=== PATIENT | male | born 1960 | race Caucasian/White ===

== ENCOUNTER 2016-08-24 09:00 | Observation (INO) | payer BC ==
[~2016-08-24] VITALS: Ht 182.9 cm; Wt 126.7 kg
--- NOTE | ~2016-08-24 | OR ---
PATIENT'S NAME: MIR LOPEZ [facility] AGE: 55 Y [address] ROOM: [address] [address] LOCATION: [facility] ADMIT DATE: 08/26/2016 OR/Procedure Report DISCHARGE DATE: FAMILY PHYSICIAN: DOMITILA VAZQUEZ MD ATTENDING PHYSICIAN: Lulu Silva SURGEON: Lulu Silva MD POLICY SERVICES REPRESENTATIVE: Jeffrey Cummings CST. DATE OF PROCEDURE: 08/26/2016 PREOPERATIVE DIAGNOSIS: Low back pain with radiation. POSTOPERATIVE DIAGNOSIS: Low back pain with radiation. PROCEDURE PERFORMED: 1. Bilateral hemilaminotomy, medial facetectomy, and foraminotomy at L4-5. 2. Left L4-5 microdiskectomy. ANESTHESIA: General. ANESTHESIA PROVIDER: Mir Rosas CRNA HISTORY: The patient is a 55-year-old male, who presented with back pain going down the backs of the legs especially on the left leg. The patient's history is significant for previous spinal fusion at L5-S1 level. 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 Epidural steroid injections were tried without lasting benefit. Surgery was therefore recommended. The procedure, benefits, and risks were discussed with the patient and with his consent, he was brought to the operating room for surgery. PROCEDURE IN DETAIL: The patient was placed in a supine position. Anesthesia was induced and he was intubated. He was then rolled to a prone position on a Noel table taking care to protect all pressure points. The incision line was marked out in the midline of his lower back corresponding to the incision used for his previous surgery. The whole area was prepped and draped in a sterile fashion. Local anesthesia was infiltrated. The #10 blade was used to open the incision and to deepen it to the fascial layer. There was scar tissue from the previous surgery. Working very carefully, the tip of the L4 spinous process was identified. The paraspinous muscles were then dissected off the spinous process and laminae of L4. The L3 lamina was also seen. Intraoperative x-ray was obtained to verify our level. Microscope was brought in at this point, and under microscopic vision bilateral hemilaminotomy was carried out of the L4 level. The hemilaminotomy PATIENT'S NAME: MIR LOPEZ [facility] AGE: 55 Y [address] ROOM: [id number] [place], [place] [id number] LOCATION: [facility] ADMIT DATE: 08/26/2016 OR/Procedure Report DISCHARGE DATE: FAMILY PHYSICIAN: DOMITILA VAZQUEZ MD ATTENDING PHYSICIAN: Lulu Silva was continued until the medial facet was seen. The medial facet was also drilled down to expose the lateral edge of the dura on both sides. A little bit more dissection showed the medial wall of the pedicles. Right at the medial wall of the left L5 pedicle, there was a piece of disk that was compressing the nerve roots. There was also a lot of scar tissue. Working very carefully, the nerve root was decompressed, and the disk material was extracted. The ball-tipped probe was then used to feel the foramen and it was quite free. Attention was then directed to the right side and similar foraminotomy was carried out on the right side, but the scar tissue was a whole lot more and it was more difficult to really clean out the foramen as I had done on the left side. I felt however that the nerve decompression had been achieved, and did not want to risk a spinal fluid leak for trying to remove the scar tissue that was still present. Bone wax was used to wax the bone edges and irrigation was used to wash out the debris. Ropivacaine was placed in the epidural space. The incision was closed in layers with appropriate suture materials. A sterile dressing was applied. The patient was rolled back to a supine position. His anesthesia was reversed. He was extubated and taken to the recovery room to complete his recovery. I was present and performed every aspect of this procedure, assisted by operating room personnel. There were no apparent intraoperative complications. Swabs, needles, and instruments were well accounted for the end of the procedure. Estimated blood loss was less than 100 mL. There was no reason for blood transfusion. I expect the patient to benefit from this procedure. His leg pain should feel better. MD EWELINA MARIEO/rachana /[id number] d: 08/27/16 0039 t: 09/02/16 1644, OPERATIVE SUMMARY
[2016-08-24] MEDS ORDERED: LISINOPRIL10 MG PO (09:21)
[2016-08-24] MEDS ORDERED: HYGROTON25 MG PO (09:21)
[2016-08-24] MEDS ORDERED: DURAGESIC1 EAC1 TOP (09:23)
[2016-08-26] MEDS ORDERED: CLINDAMYCIN HC300 MG PO (12:14)
--- NOTE | 2016-08-26 20:34 | NUR ---
Significant Event: Patient alert and oriented X 3. Room air. SBP 140's. HR 90's. Dilaudid 1 mg given at 1730 for pain of an 8, resolved to a 3. Surgical incision on back closed with sutures. Dressing is airstrip/ABD. Equal strength in all 4 extremeties. Good cap refills and good sensation. Peripheral IV in right hand, LR infusing at 75 ml/hr. Pleasant and cooperative with cares. Follow up:
--- NOTE | 2016-08-27 05:17 | NUR ---
Significant Event: Alert/oriented x3. Plans to go home today. Dressing C/D/I. VSS, CMS WNL. 1 assist ambulation/transfers. Room air, O2 sats >90% throughout shift. SL in right arm. Morphine 4 mg IVP at 1943; Percocet 4 mg PO at 2043; Dilaudid 1 mg IVP at 2223 and 503. Didn't get too much sleep. Prefers Dilaudid IVP and Percocet 4 mg for pain control. Follow up:
--- NOTE | 2016-08-27 10:00 | NUR ---
Introduced self/role to patient and his Maira. Plan is home either today or tomorrow they stated. Denied any barriers to discharge or at home. House is all 1 level and no DME needed. Added my name to his marker board, will continue to follow.
[2016-08-27] MEDS ORDERED: PERCOCET 5-3251 EACH PO (15:20)
--- NOTE | 2016-08-27 19:48 | NUR ---
Discharge instructions given to patient and his . REviewed s/s infection, care of dressing, when to call the dr, all medications, fu appt, etc. REfer to discharge instruction packet for details. All belongings sent with patient. Encouraged to call md with any questions concerns after discharge.
== END 2016-08-27 16:30 | disposition disaster alternative care site (69) ==
LOC: G3N 08-26 10:49
PROVIDERS: ADMIT Neurological Surgery
PROC: 0SB20ZZ Excision of Lumbar Vertebral Disc, Open Approach (ICD-10-PCS; principal; 2016-08-26)
PROC: 01NB0ZZ Release Lumbar Nerve, Open Approach (ICD-10-PCS; 2016-08-26)
DX: M54.16 Radiculopathy, lumbar region (principal); M48.06 Spinal stenosis, lumbar region; I10 Essential (primary) hypertension; M19.90 Unspecified osteoarthritis, unspecified site; F17.220 Nicotine dependence, chewing tobacco, uncomplicated; Z98.1 Arthrodesis status; E66.9 Obesity, unspecified; Z68.38 Body mass index [BMI] 38.0-38.9, adult; Z98.890 Other specified postprocedural states; Z88.0 Allergy status to penicillin; Z88.5 Allergy status to narcotic agent; Z88.8 Allergy status to other drugs, medicaments and biological substances; Z79.899 Other long term (current) drug therapy
CPT/HCPCS: G0378; J1040; J1170; J2001; J2270; J2795; J3010; J3370; J7120

== ENCOUNTER → 2016-10-28 | Outpatient (CLI) | payer BC ==
[~2016-10-28] MED LIST: CLINDAMYCIN HC300 MG PO; DURAGESIC1 EAC1 TOP; HYGROTON25 MG PO; LISINOPRIL10 MG PO; PERCOCET 5-3251 EACH PO
== END | disposition disaster alternative care site (69) ==
LOC: GRAD 15:36
DX: M48.06 Spinal stenosis, lumbar region (principal); M54.40 Lumbago with sciatica, unspecified side; M47.26 Other spondylosis with radiculopathy, lumbar region; Z98.890 Other specified postprocedural states